=== PATIENT | female | born 1975 | race American Indian/Alaskan Native ===

== ENCOUNTER 2017-07-21 00:51 | Emergency (ER) | payer SELFPAY ==
[2017-07-21 00:52] VITALS: BMI 36.8
[2017-07-21 01:20] VITALS: TEMP 98.1; O2SAT 99
[2017-07-21 02:05] LABS: URINE BILIRUBIN NEGATIVE (NEGATIVE); URINE BLOOD MODERATE (NEGATIVE); URINE GLUCOSE (UA) NEGATIVE (NEGATIVE); URINE KETONE NEGATIVE (NEGATIVE); URINE LEUKOCYTE ESTERASE NEGATIVE Leu/uL (NEGATIVE); URINE PROTEIN NEGATIVE mg/dL (<30 mg/dL)
[2017-07-21 02:06] LABS: URINE APPEARANCE SL CLOUDY (CLEAR); URINE COLOR YELLOW (YELLOW)
--- NOTE | 2017-07-21 02:06 | ED PDOC ---
Arrival/HPI - General Chief Complaint: Back Pain Time Seen by Provider: 07/21/17 01:46 Historian: Patient - History of Present Illness Narrative History of Present Illness (Text): 07/21/17 01:59 A 41 year old female with no significant past medical history, presents to the Emergency department with 2 week duration right flank discomfort. The patient states that the pain is mostly constant and reproducible with palpation and when she ambulates. She notes that she has a normal Chest/ Rib X-Ray. She states that she had a mechanical fall at work today which made the pain worse. She patient denies fevers, chills, headache, dizziness, abdominal pain, nausea, vomiting, diarrhea, hematuria, neck pain, chest pain, shortness of breath, dyspnea on exertion, cough or any other complaint. Time/Duration: Other (2 weeks) Symptom Onset: Sudden Symptom Course: Unchanged Activities at Onset: Rest, Light Context: Home, Work Past Medical History - Provider Review Nursing Documentation Reviewed: Yes - Infectious Disease Hx of Infectious Diseases: None - Tetanus Immunization Tetanus Immunization: Unknown - Reproductive Menopause: No - Cardiac Hx Cardiac Disorders: No - Pulmonary Hx Asthma: Yes - Renal Hx Kidney Stones: Yes (lithotripsy) - Genitourinary/Gynecological Hx Urinary Tract Infection: Yes - Psychiatric Hx Depression: No Hx Emotional Abuse: No Hx Physical Abuse: No Hx Substance Use: No - Surgical History Hx Hysterectomy: Yes Hx Orthopedic Surgery: Yes (right ankle) Hx Tubal Ligation: Yes - Anesthesia Hx Anesthesia: Yes Hx Anesthesia Reactions: No Hx Malignant Hyperthermia: No - Suicidal Assessment Feels Threatened In Home Enviroment: No Family/Social History - Physician Review Nursing Documentation Reviewed: Yes Family/Social History: No Known Family HX Smoking Status: Heavy Smoker > 10 Cigarettes Daily Hx Alcohol Use: Yes Hx Substance Use: No Hx Substance Use Treatment: No Allergies/Home Meds Allergies/Adverse Reactions: Allergies bee pollen Allergy (Verified 07/21/17 01:17) ANAPHYLAXIS Review of Systems - Physician Review All systems were reviewed & negative as marked: Yes Physical Exam - Physical Exam Narrative Physical Exam (Text): 07/21/17 02:07 - Review of Systems Constitutional: Normal. absent: Fatigue, Weight Change, Fevers Eyes: Normal ENT: denies sore throat, denies tristhmus Respiratory: Normal. absent: SOB, Cough, Sputum Cardiovascular: absent: Chest Pain, Palpitations, Syncope Gastrointestinal: Normal. absent: Abdominal Pain, Diarrhea, Nausea, Vomiting Genitourinary: Normal. absent: Dysuria, Frequency, Hematuria Musculoskeletal: (+) right flank discomfort. absent: Arthralgias, Back Pain, Neck Pain Skin: no rashes, no erythema Neurological: absent: Focal Weakness Endocrine: Normal Hemo/Lymphatic: Normal Psychiatric: No suicidal or homicidal ideations Physical exam Patient appears age appropriate in no distress, speaking full sentences without difficulty - Systems Exam Head: Present: Atraumatic, Normocephalic Pupils: Present: PERRL Extroacular Muscles: Present: EOMI Conjunctiva: Present: Normal Mouth: Present: Moist Mucous Membranes Neck: Present: Normal Range of Motion. No: MIDLINE TENDERNESS, Paraspinal Tenderness Respiratory/Chest: Present: Clear to Auscultation, Good Air Exchange. No: Respiratory Distress, Accessory Muscle Use, Tachypneic Cardiovascular: Present: Regular Rate and Rhythm, Normal S1, S2, Peripheal Pulses Present. No: Murmurs Abdomen: Present: Normal Bowel Sounds. No: Tenderness, Distention, Peritoneal Signs, Rebound, Guarding Back: Present: Localized right flank. Pain quality reproducible with palpation. No: Midline Tenderness, Paraspinal Tenderness Upper Extremity: Present: Normal Inspection. No: Cyanosis, Edema Lower Extremity: Present: Normal Inspection. No: Edema Neurological: Present: GCS=15, Speech Normal, cranial nerves II through XII fully intact with no cerebellar abnormality, neurosensory fully intact. No focal neurological deficits. Skin: Present: Warm, Dry, Normal Color. No: Rashes Lymphatic: Present: OX3, NI, NC Psychiatric: Present: Alert, Oriented x 3, Normal Insight, Normal Concentration Vital Signs Temp Pulse Resp BP Pulse Ox 07/21/17 01:19 98.1 F 71 17 132/80 99 Temperature: Afebrile Blood Pressure: Normal Pulse: Regular Respiratory Rate: Normal Appearance: Positive for: Well-Appearing, Non-Toxic, Comfortable Pain Distress: Mild Mental Status: Positive for: Alert and Oriented X 3 Medical Decision Making ED Course and Treatment: 07/21/17 02:10 Impression: A 41 year old female with 2 week duration right flank pain. On exam, pain quality reproducible with palpation. Plan: -- Abdomen/Pelvis CT -- Toradol -- Urine Analysis -- Reassess and disposition Progress Notes: CT Abdomen and Pelvis Without Intravenous Contrast IMPRESSION: 1. 4.6 CM cystic lesion of the right adnexa. If indicated, this can be further evaluated with pelvic sonogram. 2. Additional incidental and/or chronic findings as described. 3. No evidence for obstructive uropathy. Dictated and Authenticated by: Vincent Acosta MD 07/21/2017 4:01 AM Eastern Time ([place] & [place]) 07/21/17 04:14 CT read noted pt is c/o pain in the area of her R. flank, and not the RLQ. RLQ non-tender to palpation pt currently in no distress and states she does not have pain states she feels comfortable being dc'd home with outpatient f/u Pt states she understands to return to the ER right away for new or worsening symptoms or for inability to f/u with PMD or specialist as instructed. Patient states that she fully agrees with and understands discharge instructions. States that she agrees with the plan and disposition. Verbalized and repeated discharge instructions and plan. I have given the patient opportunity to ask any additional questions. - Lab Interpretations Lab Results: Lab Results 07/21/17 01:58: Urine Color Yellow, Urine Appearance Sl cloudy, Urine pH 6.0, Ur Specific D[place]el >= 1.030, Urine Protein Negative, Urine Glucose (UA) Negative, Urine Ketones Negative, Urine Blood Moderate H, Urine Nitrate Negative , Urine Bilirubin Negative, Urine Urobilinogen 1.0 H, Ur Leukocyte Esterase Negative, Urine RBC 2 - 5, Urine WBC 0 - 2, Ur Epithelial Cells 6 - 8, Urine Bacteria Mod - RAD Interpretation Radiology Orders: 07/21/17 01:46 ABD & PELVIS W/O PO OR IV CONT [CT] Stat - Medication Orders Current Medication Orders: Discontinued Medications Ketorolac Tromethamine (Toradol) 30 mg IM STAT STA Stop: 07/21/17 01:47 Last Admin: 07/21/17 02:03 Dose: 30 mg - Scribe Statement The provider has reviewed the documentation as recorded by the Tatyana Haywood Provider Scribe Attestation: All medical record entries made by the Scribe were at my direction and personally dictated by me. I have reviewed the chart and agree that the record accurately reflects my personal performance of the history, physical exam, medical decision making, and the department course for this patient. I have also personally directed, reviewed, and agree with the discharge instructions and disposition Disposition/Present on Arrival - Present on Arrival Any Indicators Present on Arrival: No History of DVT/PE: No History of Uncontrolled Diabetes: No Urinary Catheter: No History of Decub. Ulcer: No History Surgical Site Infection Following: None - Disposition Have Diagnosis and Disposition been Completed?: Yes Diagnosis: Flank pain Disposition: HOME/ ROUTINE Disposition Time: 04:15 Patient Plan: Discharge Condition: GOOD Discharge Instructions (ExitCare): Flank Pain (ED), Ovarian Cyst (ED) Print Language: GREEK Additional Instructions: PLEASE RETURN TO THE EMERGENCY DEPARTMENT FOR NEW OR WORSENING SYMPTOMS. RETURN RIGHT AWAY IF YOU CANNOT FOLLOW UP WITH YOUR PRIMARY CARE DOCTOR, CLINIC, OR SPECIALIST IN 1-2 DAYS. Prescriptions: Ibuprofen [Motrin] 600 mg PO Q8 PRN #12 tab PRN Reason: Pain, Moderate (4-7) Referrals: Rhiannon Cummins MD [Medical Doctor] - Follow up with primary Forms: [facility] [facility] ([place]), WORK NOTE
[2017-07-21 02:13] LABS: URINE BACTERIA MOD (NEG); URINE WBC 0 - 2 /hpf (0-6)
--- NOTE | 2017-07-21 04:02 | CT ---
EXAM: CT Abdomen and Pelvis Without Intravenous Contrast CLINICAL HISTORY: 41 years old, female; Pain; Abdominal pain; Flank; Right; Prior surgery; Surgery date: 6+ months; Surgery type: Hysterectomy; Additional info: R. Flank pain TECHNIQUE: Axial computed tomography images of the abdomen and pelvis without intravenous contrast. All CT scans at this facility use one or more dose reduction techniques, viz.: automated exposure control; ma/kV adjustment per patient size (including targeted exams where dose is matched to indication; i.e. head); or iterative reconstruction technique. Coronal and sagittal reformatted images were created and reviewed. COMPARISON: DX - ABDOMEN (FLAT PLATE) 1VIEW 07/14/2017 3:15:00 PM FINDINGS: Lower thorax: There is minimal bibasilar atelectasis. ABDOMEN: Liver: Liver demonstrates several subcentimeter hypodensities which are too small to clinically characterize. Gallbladder and bile ducts: The gallbladder is normal. No calcified stones. No ductal dilation. Pancreas: SpleenThe pancreas is normal. No ductal dilation. Spleen: See above. Adrenals: The adrenal glands are normal. Kidneys and ureters: There is no evidence of hydronephrosis. Stomach and bowel: Stomach is decompressed. Colonic constipation is present. There is no evidence of intestinal obstruction. No mucosal thickening. Appendix: A normal appendix is identified. PELVIS: Bladder: Bladder is decompressed. No stones. Reproductive: 4.6 CM cystic lesion of the right adnexa. If indicated, this can be further evaluated with pelvic sonogram. There has been a hysterectomy. ABDOMEN and PELVIS: Intraperitoneal space: There is no evidence of free intraperitoneal fluid. There is no free intraperitoneal air. Bones/joints: Tiny fat containing left femoral hernia. There are mild degenerative changes present. There is mild diffuse osteopenia. No acute fracture. No dislocation. Soft tissues: There is a tiny fat-containing periumbilical hernia. Vasculature: The aorta is normal. No abdominal aortic aneurysm. Lymph nodes: There is no evidence of lymphadenopathy. Other findings: There is a 9 mm left lower pole nonobstructing calculus IMPRESSION: 1. 4.6 CM cystic lesion of the right adnexa. If indicated, this can be further evaluated with pelvic sonogram. 2. Additional incidental and/or chronic findings as described. 3. No evidence for obstructive uropathy.
[2017-07-21 04:42] VITALS: BP 130/79; PULSE 72; RESP 18
== END 2017-07-21 04:40 | disposition home or self-care (01) ==
LOC: ED 00:51
DX: R10.9 Unspecified abdominal pain (principal)
CPT/HCPCS: 74176; 81001; 96372; 99284; J1885